=== PATIENT | male | born 1965 | race American Indian/Alaskan Native ===

== ENCOUNTER 2016-12-08 22:14 | Emergency (ER) | payer BC ==
[2016-12-08 23:44] LABS: Hematocrit 38.8 % (35.5-45.6); Hemoglobin 13.3 gm/dl (11.8-15.2); Mean Corpuscular HGB Conc 34 % (32-34); Mean Corpuscular Hemoglobin 28 pg (28-32); Mean Corpuscular Volume 81 fl (84-94); Platelet Count 221 K/mm3 (140-440); Red Blood Count 4.79 M/mm3 (3.65-5.03); Red Cell Distribution Width 13.2 % (13.2-15.2)
[2016-12-08 23:52] LABS: INR 0.93 (0.87-1.13)
[2016-12-09 00:21] LABS: Blastocytes % (Manual) 0 %
[2016-12-09 00:22] LABS: Diff Status Complete; Platelet Estimate Consistent w Auto; RBC Morphology Normal
[2016-12-09] MEDS ORDERED: ANTIVERT PO ONE (01:30)
--- NOTE | 2016-12-09 01:33 | Emergency Department Report ---
HPI - General Chief Complaint: Weakness Time Seen by Provider: 12/09/16 01:23 - HPI HPI: This is a 50-year-old male presents to the emergency department with complaint of some dizziness and vertigo like symptoms that started earlier today and are still going on. He also has been having some intermittent cramping of his hands and fingers. He does have a history of some restless leg type syndrome but that is more chronic. He denies any headache, vision change, slurred speech, chest pain, shortness of breath, nausea, vomiting or fever. He has not taken anything for his symptoms prior to presentation. He has a past medical history of diabetes on both insulin and pills, hypertension, high cholesterol. His primary care physician is Dr. Tracy Frazier but he has been unable to see her regarding his symptoms since it is the weekend. No recent travel or sick contacts at home. The patient says that he had an episode of vertigo one time in the past. ED Past Medical Hx - Past Medical History Previous Medical History?: Yes Hx Hypertension: Yes Hx Diabetes: Yes - Surgical History Additional Surgical History: Neck surgery, Shoulder surgery (bilat), gallbladder removed ED Review of Systems ROS: Stated complaint: NUMBNESS/TINGLING IN FINGERS/DIZZY/LIGHTHEADED Other details as noted in HPI Comment: All other systems reviewed and negative Constitutional: denies: chills, fever Eyes: denies: eye pain, eye discharge, vision change ENT: denies: ear pain, throat pain Respiratory: denies: cough, shortness of breath, wheezing Cardiovascular: denies: chest pain, palpitations Gastrointestinal: denies: abdominal pain, nausea, diarrhea Genitourinary: denies: urgency, dysuria Musculoskeletal: denies: back pain, joint swelling Skin: denies: rash, lesions Neurological: vertigo. denies: headache, weakness, paresthesias Physical Exam - Physical Exam Vital Signs: Vital Signs 12/08/16 12/08/16 12/09/16 22:17 23:08 01:00 Temperature 98.7 F 98.9 F Pulse Rate 100 H 98 H 89 Respiratory 20 17 16 Rate Blood Pressure 121/75 Blood Pressure 121/75 128/70 [Right] O2 Sat by Pulse 98 100 98 Oximetry Physical Exam: GENERAL: The patient is well-developed well-nourished. HEENT: Normocephalic. Atraumatic. Extraocular motions are intact. Patient has moist mucous membranes. Pupils equal reactive to light bilaterally. Fatigable horizontal nystagmus. NECK: Supple. Trachea is midline. CHEST/LUNGS: Clear to auscultation. There is no respiratory distress noted. HEART/CARDIOVASCULAR: Regular. There is no tachycardia. There is no gallop rub or murmur. ABDOMEN: Abdomen is soft, nontender. Patient has normal bowel sounds. There is no abdominal distention. SKIN: Skin is warm and dry. NEURO: The patient is awake, alert, and oriented. The patient is cooperative. The patient has no focal neurologic deficits. The patient has normal speech. Cranial nerves II through XII grossly intact. No dysmetria. No pronator drift. MUSCULOSKELETAL: There is no tenderness or deformity. There is no limitation range of motion. There is no evidence of acute injury. ED Course Vital Signs 12/08/16 12/08/16 12/09/16 22:17 23:08 01:00 Temperature 98.7 F 98.9 F Pulse Rate 100 H 98 H 89 Respiratory 20 17 16 Rate Blood Pressure 121/75 Blood Pressure 121/75 128/70 [Right] O2 Sat by Pulse 98 100 98 Oximetry ED Medical Decision Making - Lab Data Result diagrams: 12/08/16 23:26 12/09/16 03:38 - Medical Decision Making 50-year-old male presents emergency Department with some nonspecific dizziness that seems more like vertigo. There is no chest pain, shortness of breath or any headache or fever or vision change. No focal, motor or sensory deficits and cranial nerves are intact. His labs show hyponatremia with a sodium of 125 and hyperglycemia with a blood sugar of about 300. While there is some elevation in the anion gap, he does not appear consistent with diabetic ketoacidosis. He was given a dose of meclizine, 1 L of IV fluid and a few units of IV insulin. About 1-2 hours later a repeat metabolic panel was done that showed improvement in the blood sugar but slightly worsening of the hyponatremia. At this point the patient says he is feeling well and asymptomatic after the meclizine. The hyponatremia is most likely secondary to his HCTZ. His blood pressures currently well-controlled. However secondary to the hyponatremia, I asked for the hospitalist to come and see the patient for either consultation versus admission. He decided that the patient did not require admission and wrote him for meclizine, discussed with him stopping the hydrochlorothiazide and will discharge home the patient. Critical Care Time: No Critical care attestation.: If time is entered above; I have spent that time in minutes in the direct care of this critically ill patient, excluding procedure time. ED Disposition Clinical Impression: Hyponatremia, Hyperglycemia, Vertigo Disposition: DC-01 TO HOME OR SELFCARE Is pt being admited?: No Condition: Stable Instructions: Hyponatremia (ED), Diabetic Hyperglycemia (ED), Vertigo (ED) Additional Instructions: please stop taking the hydrochlorothiazide. Follow-up with your primary care doctor for a different blood pressure medication and for reevaluation of your low sodium and vertigo. Return to the emergency department with any worsening of your symptoms or any acute distress. Referrals: PRIMARY CARE, [Primary Care Provider] - [facility]
[2016-12-09 01:48] LABS: Alanine Aminotransferase 15 units/L (7-56); Albumin 3.9 g/dL (3.9-5); Albumin/Globulin Ratio 1.7 %; Alkaline Phosphatase 79 units/L (35-129); Anion Gap 25 mmol/L; BUN/Creatinine Ratio 33.07; Blood Urea Nitrogen 43 mg/dL (9-20); Carbon Dioxide 22 mmol/L (22-30); Chloride 81.7 mmol/L (98-107); Glucose 304 mg/dL (75-100); Potassium 3.9 mmol/L (3.6-5.0); Sodium 125 mmol/L (137-145); Total Protein 6.2 g/dL (6.3-8.2)
[2016-12-09] MEDS ORDERED: NACL 0.9% 1000 ML 1,000 ML IV ONE (01:58)
[2016-12-09 02:55] LABS: Bilirubin,Urine NEG (Negative); Blood,Urine NEG (Negative); Ketones,Urine NEG (Negative); Leukocyte Esterase,Urine NEG (Negative); Mucus,Urine FEW /HPF; Nitrite,Urine NEG (Negative); Protein,Urine <15 mg/dL mg/dL (Negative); Urobilinogen,Urine < 2.0 mg/dL (<2.0); WBC,Urine < 1.0 /HPF (0.0-6.0)
[2016-12-09 04:06] LABS: BUN/Creatinine Ratio 33.63; Blood Urea Nitrogen 37 mg/dL (9-20); Calcium 9.2 mg/dL (8.4-10.2); Carbon Dioxide 21 mmol/L (22-30); Glucose 266 mg/dL (75-100)
[2016-12-09 04:07] LABS: Chloride 84.1 mmol/L (98-107); Potassium 3.8 mmol/L (3.6-5.0)
[2016-12-09 04:29] LABS: Anion Gap 23 mmol/L; Sodium 124 mmol/L (137-145)
--- NOTE | 2016-12-09 05:27 | Event Note ---
Date: 12/09/16 Patient evaluated Uncontrolled Diabetes Hyponatremia sec to high Glucose levels and Hctz Vertigo Plan: Discontinue HCTZ [place] intake of salt Control Blood glucose levels Meclizine 12.5 q8 prn
[2016-12-09 05:49] VITALS: BP 113/76
== END 2016-12-09 05:40 | disposition home or self-care (01) ==
LOC: ED 22:14
DX: E11.65 Type 2 diabetes mellitus with hyperglycemia (principal); E87.1 Hypo-osmolality and hyponatremia; R42 Dizziness and giddiness; I10 Essential (primary) hypertension
CPT/HCPCS: 36415; 80048; 80053; 81001; 82962; 84443; 84484; 85007; 85025; 85379; 85610; 93005; 93010; 96361; 96374; 99284; J7030; J1815

== ENCOUNTER 2017-03-14 07:53 | Emergency (ER) | payer BC ==
[2017-03-14 07:57] VITALS: BP 129/70
--- NOTE | 2017-03-14 08:37 | XRay Report ---
RIGHT RIBS: Pain Routine views of the rib cage demonstrate normal mineralization with no significant contour abnormalities, fractures or destructive lesions. PA view of the chest demonstrates no underlying cardiopulmonary abnormalities, fluid or pneumothorax. IMPRESSION: Normal right rib series.
[2017-03-14] MEDS ORDERED: ULTRAM PO ONE (11:44)
--- NOTE | 2017-03-14 12:34 | Emergency Department Report ---
ED Fall HPI - General Chief Complaint: Fall Stated Complaint: FALL/RT SIDE CHEST DISCOMFORT Time Seen by Provider: 03/14/17 11:39 Source: patient Mode of arrival: Wheelchair - History of Present Illness Initial Comments: pt is a 51 y/o w/m with who presents s/p fall right rib cage versus tub at home , pt advises I was instill eye drops in my eyes and got dizzy and fell, pt denies cp no sob no dizziness no lightheadedness no headache no n/c at this time pt complains or right flank rib pain with deep inspiration and palpation. pt denies sob no dizziness no N/V no bleed no abrasions Complaint: fall Onset/Timin -: hour(s) Fall From: standing When Fall Occurred: 4-6 hours [employer] Fall Witnessed: no Place Fall Occurred: home Loss of Consciousness: none Prolonged Down Time?: no Symptoms Prior to Fall: dizziness Location: other (right flank ) Severity: moderate Severity scale (0 -10): 4 Quality: sharp (with deep inspiration) Context: tripped/slipped Associated Symptoms: denies: headache, neck pain, numbness, weakness, chest paint, shortness of breath, lightheaded, vertigo, confusion - Related Data Previous Rx's Medication Instructions Recorded Last Taken Type traMADol [Ultram] 50 mg PO Q6HR PRN #24 tablet 03/14/17 Unknown Rx Allergies Allergy/AdvReac Type Severity Reaction Status Date / Time No Known Allergies Allergy Unverified 03/14/17 07:57 ED Review of Systems ROS: Stated complaint: FALL/RT SIDE CHEST DISCOMFORT Other details as noted in HPI Constitutional: denies: chills, fever Eyes: denies: eye pain, eye discharge, vision change ENT: denies: ear pain, throat pain Respiratory: denies: cough, orthopnea, shortness of breath, stridor, wheezing Cardiovascular: denies: chest pain, palpitations Endocrine: no symptoms reported Gastrointestinal: denies: abdominal pain, nausea, diarrhea Genitourinary: denies: urgency, dysuria Musculoskeletal: denies: back pain, joint swelling, arthralgia Skin: denies: rash, lesions Neurological: denies: headache, weakness, paresthesias Psychiatric: denies: anxiety, depression Hematological/Lymphatic: denies: easy bleeding, easy bruising ED Past Medical Hx - Past Medical History Previous Medical History?: Yes Hx Hypertension: Yes Hx Diabetes: Yes - Surgical History Past Surgical History?: Yes Hx Cholecystectomy: Yes Additional Surgical History: Neck surgery, Shoulder surgery (bilat), - Social History Smoking Status: Never Smoker Substance Use Type: None - Medications Home Medications: Home Medications Medication Instructions Recorded Confirmed Last Taken Type traMADol [Ultram] 50 mg PO Q6HR PRN #24 tablet 03/14/17 Unknown Rx ED Physical Exam - General Limitations: No Limitations General appearance: alert, in no apparent distress - Head Head exam: Present: atraumatic, normocephalic - Eye Eye exam: Present: normal appearance - ENT ENT exam: Present: mucous membranes moist - Neck Neck exam: Present: normal inspection, full ROM. Absent: tenderness, lymphadenopathy, thyromegaly - Expanded Neck Exam Expanded Neck exam: Absent: tenderness, midline deformity, anterior neck swelling, thyroid mass, carotid bruit, tracheal deviation - Respiratory Respiratory exam: Present: normal lung sounds bilaterally, chest wall tenderness (right flank and chest wall tenderness to palpation no crepitus no ecchymosis no deformity no flail chest). Absent: respiratory distress - Cardiovascular Cardiovascular Exam: Present: regular rate, normal rhythm, normal heart sounds. Absent: systolic murmur, diastolic murmur, rubs, gallop - GI/Abdominal GI/Abdominal exam: Present: soft, normal bowel sounds - Rectal Rectal exam: Present: deferred - Extremities Exam Extremities exam: Present: normal inspection, full ROM, normal capillary refill. Absent: tenderness, pedal edema, joint swelling, calf tenderness - Back Exam Back exam: Present: normal inspection, full ROM. Absent: tenderness, CVA tenderness (R), CVA tenderness (L), muscle spasm, paraspinal tenderness, vertebral tenderness, rash noted - Neurological Exam Neurological exam: Present: alert, oriented X3, CN II-XII intact, normal gait, reflexes normal - Expanded Neurological Exam Expanded Patient oriented to: Present: person, place, time Speech: Present: fluid speech Cranial nerves: EOM's Intact: Normal, Gag Reflex: Normal, Tongue Deviation: Normal, Nystagmus: Normal, Facial Sensation: Normal Cerebellar function: Finger to Nose: Normal, Heel to Epstein: Normal, Romberg: Normal Upper motor neuron: Dom Neglect: Normal, Pronator Drift: Normal, Babinski Sign : Normal, Sensory Extinction: Normal Sensory exam: Upper Extremity Light Touch: Normal, Upper Extremity Pin Prick: Normal, Upper Extremity Temperature: Normal, UE 2 Point Discrimination: Normal, Lower Extremity Light Touch: Normal, Lower Extremity Pin Prick: Normal, Lower Extremity Temperature: Normal, LE 2 Point Discrimination: Normal Motor strength exam: RUE: 5, LUE: 5, RLE: 5, LLE: 5 DTR: bicep (R): 2+, bicep (L): 2+, tricep (R): 2+, tricep (L): 2+, knee (R): 2+ , knee (L): 2+, ankle (R): 2+, ankle (L): 2+ Best Eye Response ([place]): (4) open spontaneously Best Motor Response (Jose A): (6) obeys commands Best Verbal Response (Jose A): (5) oriented Jose A Total: 15 - Psychiatric Psychiatric exam: Present: normal affect, normal mood - Skin Skin exam: Present: warm, dry, intact, normal color. Absent: rash ED Course Vital Signs 03/14/17 07:54 Pulse Rate 99 H Respiratory 16 Rate Blood Pressure 129/70 O2 Sat by Pulse 97 Oximetry ED Medical Decision Making - EKG Data EKG shows normal: sinus rhythm Rate: normal - EKG Data Interpretation: normal EKG - Radiology Data Radiology results: report reviewed, image reviewed no fracture no soft tissue abnormalities Critical care attestation.: If time is entered above; I have spent that time in minutes in the direct care of this critically ill patient, excluding procedure time. ED Disposition Clinical Impression: Chest wall pain Fall Qualifiers: Encounter type: initial encounter Qualified Code(s): W19.XXXA - Unspecified fall, initial encounter Disposition: TO HOME OR SELFCARE Is pt being admited?: No Does the pt Need Aspirin: No Condition: Good Instructions: Chest Pain (ED), Costochondritis (ED) Prescriptions: traMADol [Ultram] 50 mg PO Q6HR PRN #24 tablet PRN Reason: Pain Referrals: TOSIN MOREJON MD [Primary Care Provider] - 3-5 Days Forms: Work/School Release Form(ED) Time of Disposition: 14:40
== END 2017-03-14 13:08 | disposition home or self-care (01) ==
LOC: ED 07:53
DX: R07.89 Other chest pain (principal); I10 Essential (primary) hypertension; E11.9 Type 2 diabetes mellitus without complications; W17.89XA Other fall from one level to another, initial encounter; Y93.89 Activity, other specified; Y92.89 Other specified places as the place of occurrence of the external cause; Y99.8 Other external cause status
CPT/HCPCS: 93005; 93010; 99283

== ENCOUNTER 2019-08-09 20:25 | Emergency (ER) | payer BC ==
[2019-08-09 21:44] VITALS: BP 154/70
--- NOTE | 2019-08-09 22:27 | Emergency Department Report ---
Blank Doc - Documentation Documentation: 53-year-old male that presents with neck pain with radiation to right shoulder. Denies any acute trauma. This initial assessment/diagnostic orders/clinical plan/treatment(s) is/are subject to change based on patient's health status, clinical progression and re- assessment by fellow clinical providers in the ED. Further treatment and workup at subsequent clinical providers discretion. Patient/guardians urged not to elope from the ED as their condition may be serious if not clinically assessed and managed. Initial orders include: 1- Patient sent to [facility] for further evaluation and treatment 2- xrays
--- NOTE | 2019-08-09 23:23 | XRay Report ---
Cervical spine 3 views Indication: pain Findings: There is no fracture, subluxation, or other acute radiographic abnormality of the cervical spine. Pos toperative changes are noted at C5-6. Prevertebral soft tissues are unremarkable. There is mild disc space narrowing at C4-5. Signer Name: Mg Felton MD Signed: 08/09/2019 11:19 PM Workstation Name: [id number]
[2019-08-10] MEDS ORDERED: KETOROLAC 30 MG/1 ML INJ IM ONE (01:52)
[2019-08-10] MEDS ORDERED: dexAMETHasone 20 MG/5 ML VIAL IM ONE (01:52)
[2019-08-10] MEDS ORDERED: HYDROcodone/ACETAMINOPHEN 5-325 MG TAB PO ONE (02:24)
--- NOTE | 2019-08-10 02:40 | Emergency Department Report ---
ED Neck Pain/Injury HPI - General Chief Complaint: Shoulder Injury Stated Complaint: RT SHOULDER PAIN AND NECK Time Seen by Provider: 08/09/19 22:25 Mode of arrival: Ambulatory Limitations: No Limitations - History of Present Illness Initial Comments: Mr. Mack is a 53 y/o white male with hx of Cervical Radiculopathy with right shoulder radiculopathy. pt presents tonight for right lateral neck and shoulder pain at 8/10 aching spasm. states worse than usual pain. pt denies new fall injury or trauma. describes pain as sharp aching burning radiating for right lateral posterior neck to right lower arm. pain is exacerbated by movement. pain is relieved by nothing. pt denies neuro deficits. MD Complaint: neck pain, other (right lateral and anterior shoulder pain ) Onset/Timin -: days(s) Place: home Radiation: right lateral, right shoulder Severity: moderate Severity scale (0 -10): 6 Quality: burning, sharp, aching Consistency: constant Improves With: none Worsens With: movement of extremity Context: turning/bending Associated Symptoms: numbness, tingling. denies: weakness Treatments Prior to Arrival: none - Related Data Previous Rx's Medication Instructions Recorded Last Taken Type traMADoL [Ultram] 50 mg PO Q6HR PRN #24 tablet 03/14/[address] [Pipo Alexis] 75 mg PO TID #30 tablet 08/10/19 Unknown Rx Menthol/Camphor [[place] 1 applicatio TP QID PRN #1 tube 08/10/19 Unknown Rx Ointment] Methocarbamol [Robaxin] 500 mg PO TID PRN #30 tablet 08/10/19 Unknown Rx predniSONE [Deltasone] 40 mg PO QDAY 5 Days #10 tab 08/10/19 Unknown Rx Allergies Allergy/AdvReac Type Severity Reaction Status Date / Time No Known Allergies Allergy Verified 08/09/19 20:41 ED Review of Systems ROS: Stated complaint: RT SHOULDER PAIN AND NECK Other details as noted in HPI Constitutional: denies: chills, fever Eyes: denies: eye pain, eye discharge, vision change ENT: denies: ear pain, throat pain Respiratory: no symptoms reported Cardiovascular: denies: chest pain, palpitations Endocrine: no symptoms reported Gastrointestinal: denies: abdominal pain, nausea, diarrhea Genitourinary: denies: urgency, dysuria Musculoskeletal: arthralgia, myalgia, other (neck pain ) Skin: denies: rash, lesions Neurological: denies: headache, weakness, paresthesias, vertigo Psychiatric: denies: anxiety, depression Hematological/Lymphatic: denies: easy bleeding, easy bruising ED Past Medical Hx - Past Medical History Previous Medical History?: Yes Hx Hypertension: Yes Hx Diabetes: Yes - Surgical History Hx Cholecystectomy: Yes Additional Surgical History: Neck surgery, Shoulder surgery (bilat), - Social History Smoking Status: Never Smoker Substance Use Type: None - Medications Home Medications: Home Medications Medication Instructions Recorded Confirmed Last Taken Type traMADoL [Ultram] 50 mg PO Q6HR PRN #24 tablet 03/14/[address] [Voltaren Dr] 75 mg PO TID #30 tablet 08/10/19 Unknown Rx Menthol/Camphor [[place] 1 applicatio TP QID PRN #1 tube 08/10/19 Unknown Rx Ointment] Methocarbamol [Robaxin] 500 mg PO TID PRN #30 tablet 08/10/19 Unknown Rx predniSONE [Deltasone] 40 mg PO QDAY 5 Days #10 tab 08/10/19 Unknown Rx ED Physical Exam - General Limitations: No Limitations General appearance: alert, in no apparent distress - Head Head exam: Present: normocephalic, normal inspection - Eye Eye exam: Present: normal appearance, PERRL, EOMI Pupils: Present: normal accommodation - ENT ENT exam: Present: mucous membranes moist - Neck Neck exam: Present: full ROM. Absent: tenderness (right posterior lateral neck muscle tenderness to deep palpation), lymphadenopathy, thyromegaly - Expanded Neck Exam Expanded Neck exam: Present: tenderness. Absent: midline deformity, anterior neck swelling, thyroid mass, carotid bruit, tracheal deviation - Respiratory Respiratory exam: Present: normal lung sounds bilaterally. Absent: wheezes, stridor, chest wall tenderness - Cardiovascular Cardiovascular Exam: Present: regular rate, normal rhythm, normal heart sounds. Absent: systolic murmur, diastolic murmur, rubs, gallop - GI/Abdominal GI/Abdominal exam: Present: soft, normal bowel sounds. Absent: tenderness - Rectal Rectal exam: Present: deferred - Extremities Exam Extremities exam: Present: full ROM, tenderness, normal capillary refill. Absent: joint swelling - Expanded Upper Extremity Exam Right Shoulder Exam: Present: tenderness (right lateral anterior shoulder ), tenderness over AC joint. Absent: swelling, abrasion, laceration, ecchymosis, deformity, crepidus, dislocation, erythema Upper Arm exam: Present: full ROM. Absent: tenderness Elbow exam: Present: full ROM. Absent: tenderness Forearm Wrist exam: Present: full ROM. Absent: tenderness Hand Wrist exam: Present: full ROM. Absent: tenderness Neuro motor exam: Present: wrist extension intact, thumb opposition intact, thumb IP flexion intact, thumb adduction intact, fingers 2-5 abduction intact Neurosensory exam: Present: radial nerve intact Vascular: Present: radial pulse - Back Exam Back exam: Present: normal inspection, full ROM. Absent: tenderness, paraspinal tenderness, vertebral tenderness, rash noted - Neurological Exam Neurological exam: Present: alert, oriented X3, CN II-XII intact, normal gait, reflexes normal. Absent: motor sensory deficit - Expanded Neurological Exam Expanded Patient oriented to: Present: person, place, time Speech: Present: fluid speech Sensory exam: Upper Extremity Light Touch: Normal, Upper Extremity Pin Prick: Normal, Upper Extremity Temperature: Normal Motor strength exam: RUE: 5, LUE: 5, RLE: 5, LLE: 5 Best Eye Response (Jose A): (4) open spontaneously Best Motor Response (Jose A): (6) obeys commands Best Verbal Response (Jose A): (5) oriented Jose A Total: 15 - Psychiatric Psychiatric exam: Present: normal affect, normal mood - Skin Skin exam: Present: warm, dry, intact, normal color. Absent: rash ED Course Vital Signs 08/09/19 08/09/19 20:54 22:26 Temperature 99.5 F 98.5 F Pulse Rate 90 89 Respiratory 18 18 Rate Blood Pressure 154/70 154/70 O2 Sat by Pulse 98 98 Oximetry ED Medical Decision Making - Radiology Data Radiology results: report reviewed, image reviewed Cervical spine 3 views Indication: pain Findings: There is no fracture, subluxation, or other acute radiographic abnormality of the cervical spine. Postoperative changes are noted at C5-6. Prevertebral soft tissues are unremarkable. There is mild disc space narrowing at C4-5. Signer Name: Mg Felton MD Signed: 08/09/2019 11:19 PM Workstation Name: [id number] Transcribed By: SS Dictated By: Mg Felton MD Electronically Authenticated By: Mg Felton MD Signed Date/Time: 08/09/192318 DD/ 17 TD/TT: - Medical Decision Making This is cervical radiculopathy radiating the right arm, pain is improved with medications given in ED. Plan DC to home with NSAIDs steroids muscle relaxants analgesic balm. Neck and shoulder exercises as previously prescribed by orthopedics. Follow-up with Ortho in 2 to 3 days. Patient verbalizes agreement and understanding with discharge plan DC to home in stable condition at this time. Critical care attestation.: If time is entered above; I have spent that time in minutes in the direct care of this critically ill patient, excluding procedure time. ED Disposition Clinical Impression: Cervical radiculopathy at C7 Right shoulder strain Qualifiers: Encounter type: initial encounter Qualified Code(s): S46.911A - Strain of unspecified muscle, fascia and tendon at shoulder and upper arm level, right arm, initial encounter Disposition: DC-01 TO HOME OR SELFCARE Is pt being admited?: No Does the pt Need Aspirin: No Condition: Stable Instructions: Cervical Radiculopathy (ED), Shoulder Sprain (ED) Prescriptions: predniSONE [Deltasone] 40 mg PO QDAY 5 Days #10 tab Methocarbamol [Robaxin] 500 mg PO TID PRN #30 tablet PRN Reason: Muscle Spasm Menthol/Camphor [[place] Ointment] 1 applicatio TP QID PRN #1 tube PRN Reason: pain Diclofenac Dr [Voltaren ] 75 mg PO TID #30 tablet Referrals: GALO KIRBY MD [Staff Physician] - 3-5 Days Forms: Work/School Release Form(ED) Time of Disposition: 02:53
== END 2019-08-10 03:20 | disposition home or self-care (01) ==
LOC: ED 20:25
DX: S46.911A Strain of unspecified muscle, fascia and tendon at shoulder and upper arm level, right arm, initial encounter (principal); M54.12 Radiculopathy, cervical region; I10 Essential (primary) hypertension; E11.9 Type 2 diabetes mellitus without complications; Z90.49 Acquired absence of other specified parts of digestive tract; Z98.890 Other specified postprocedural states; Z79.899 Other long term (current) drug therapy; X58.XXXA Exposure to other specified factors, initial encounter; Y93.89 Activity, other specified; Y92.89 Other specified places as the place of occurrence of the external cause; Y99.8 Other external cause status
CPT/HCPCS: 72040; 96372; 99283; J1100; J1885